=== PATIENT | female | born 1985 | race Caucasian/White ===

== ENCOUNTER → 2017-07-01 | Outpatient (CLI) | payer OTHER ==
[2017-07-01 11:20] LABS: BASO # 0.1 x10^3/uL (0.0-0.2); BASO % 1 % (0-3); EOS % 7 % (0-3); HEMOGLOBIN 14.6 g/dL (12.0-15.5); LYMPH # 1.8 x10^3/uL (1.0-4.8); LYMPH % 32 % (24-48); MEAN CORPUSCULAR HEMOGLOBIN 29 pg (25-35); MEAN CORPUSCULAR HGB CONC 32 g/dL (31-37); MEAN CORPUSCULAR VOLUME 89 fL (79-100); MONO % 11 % (0-9); NEUT % 49 % (31-73); PLATELET COUNT 209 x10^3/uL (140-400); RED BLOOD COUNT 5.04 x10^6/uL (3.50-5.40); WHITE BLOOD COUNT 5.8 x10^3/uL (4.0-11.0)
[2017-07-01 11:41] LABS: ALBUMIN 4.2 g/dL (3.4-5.0); ALBUMIN/GLOBULIN RATIO 1.2 (1.0-1.7); CREATININE 0.8 mg/dL (0.6-1.0); GFR 83.1; POTASSIUM 3.8 mmol/L (3.5-5.1); TOTAL BILIRUBIN 0.5 mg/dL (0.2-1.0); TOTAL PROTEIN 7.6 g/dL (6.4-8.2)
[2017-07-01 11:43] LABS: CHOLESTEROL/HDL RATIO 2.5
== END | disposition home or self-care (01) ==
LOC: LAB 10:58
PROVIDERS: ATTEND Nurse Practitioner
DX: Z13.220 Encounter for screening for lipoid disorders (principal); Z83.49 Family history of other endocrine, nutritional and metabolic diseases; Z79.899 Other long term (current) drug therapy
CPT/HCPCS: 36415; 80053; 80061; 83036; 84443; 85025

== ENCOUNTER 2018-05-27 22:14 | Emergency (ER) | payer OTHER ==
[~2018-05-27] VITALS: Ht 167.6 cm; Wt 72.6 kg
[2018-05-27 22:39] LABS: BILIRUBIN,URINE NEGATIVE (NEG); CLARITY,URINE CLEAR; COLOR,URINE YELLOW; NITRITE,URINE NEGATIVE (NEG); PROTEIN,URINE NEGATIVE (NEG-TRACE); UROBILINOGEN,URINE 0.2 mg/dL (0.2 mg/dL)
[2018-05-27 22:45] LABS: BACTERIA,URINE FEW /HPF (0-FEW)
[2018-05-27 22:55] VITALS: BP 164/94
[2018-05-27] MEDS ORDERED: NITR100C62 PO (22:59)
--- NOTE | 2018-05-27 23:00 | PHYS DOC ---
Adult General Chief Complaint Chief Complaint: PAIN ON URINATION [facility] HPI Patient is a 33 year old female who presents with dysuria. Patient states that she has been having pain with urination as well as frequency and urgency that started today. She has also had 2 episodes of chills but denies fever, nausea or vomiting. Nothing has helped with her symptoms. Review of Systems Review of Systems Constitutional: Denies fever or chills [] Respiratory: Denies cough or shortness of breath [] Cardiovascular: No additional information not addressed in HPI [] GI: Denies abdominal pain, nausea, vomiting, bloody stools or diarrhea [] : See history of present illness Musculoskeletal: Denies back pain or joint pain [] Integument: Denies rash or skin lesions [] Neurologic: Denies headache, focal weakness or sensory changes [] Endocrine: Denies polyuria or polydipsia [] All other systems were reviewed and found to be within normal limits, except as documented in this note. Allergies Allergies Allergies Coded Allergies Type Severity Reaction Last Updated Verified No Known Drug Allergies 05/27/18 No Physical Exam Physical Exam Constitutional: Well developed, well nourished, no acute distress, non-toxic appearance. [] Cardiovascular:Heart rate regular rhythm, no murmur [] Lungs & Thorax: Bilateral breath sounds clear to auscultation [] Abdomen: Bowel sounds normal, soft, no tenderness, no masses, no pulsatile masses. [] Skin: Warm, dry, no erythema, no rash. [] Back: No tenderness, no CVA tenderness. [] Neurologic: Alert and oriented X 3, normal motor function, normal sensory function, no focal deficits noted. [] Psychologic: Affect normal, judgement normal, mood normal. [] Current Patient Data Vital Signs Vital Signs Date Time Temp Pulse Resp B/P (MAP) Pulse Ox O2 Delivery O2 Flow Rate FiO2 05/27/18 22:55 98.4 73 14 164/94 (117) 99 Room Air 98.4 Staff Physician Addendum: I was working in the ER during the course of this patient's visit. I was available for consultation as needed, but I was not directly involved in the care of this patient. Lab Values Laboratory Tests Test 05/27/18 22:15 05/27/18 22:32 Urine Collection Type Void Urine Color Yellow Urine Clarity Clear Urine pH 7.0 Urine Specific [place] <=1.005 Urine Protein Negative mg/dL (NEG-TRACE) Urine Glucose (UA) Negative mg/dL (NEG) Urine Ketones (Stick) Negative mg/dL (NEG) Urine Blood Moderate (NEG) Urine Nitrite Negative (NEG) Urine Bilirubin Negative (NEG) Urine Urobilinogen Dipstick 0.2 mg/dL (0.2 mg/dL) Urine Leukocyte Esterase Large (NEG) Urine RBC 1-2 /HPF (0-2) Urine WBC 11-20 /HPF (0-4) Urine Squamous Epithelial Cells None /LPF Urine Bacteria Few /HPF (0-FEW) POC Urine HCG, Qualitative Hcg negative (Negative) Microbiology 05/27/18 Urine Culture - Final, Complete 05/27/18 Urine Culture Result 1 (DONOVAN) - Final, Complete 05/27/18 Antimicrobic Susceptibility - Final, Complete EKG EKG [] Radiology/Procedures Radiology/Procedures [] Course & Med Decision Making Course & Med Decision Making Pertinent Labs and Imaging studies reviewed. (See chart for details) [] Dragon Disclaimer Dragon Disclaimer This electronic medical record was generated, in whole or in part, using a voice recognition dictation system. Departure Departure Impression: Primary Impression: Urinary tract infection Disposition: HOME, SELF-CARE Condition: STABLE Referrals: BENTLEY SALINAS (PCP) Patient Instructions: Urinary Tract Infection Additional Instructions: Take the medication as prescribed. Follow-up with your primary care provider in one week for urine recheck. If worsening return to the emergency department. Scripts Nitrofurantoin Monohyd/M-Cryst (MACROBID 100 MG CAPSULE) 100 Mg Capsule 1 CAP PO BID for UTI, #14 CAP Prov: MOSES MANN APRN 05/27/18 MOSES MANN APRN May 27, 2018 23:00 MONSTER MENDEZ MD Jun 02, 2018 06:17
== END 2018-05-27 23:07 | disposition home or self-care (01) ==
LOC: ER 22:14
DX: N39.0 Urinary tract infection, site not specified (principal)
CPT/HCPCS: 81001; 81025; 87086; 87186; 99284

== ENCOUNTER → 2018-06-29 | Outpatient (CLI) | payer OTHER ==
[~2018-06-29] MED LIST: NITR100C62 PO
[2018-06-29 09:10] LABS: BASO % 0 % (0-3); EOS # 0.5 x10^3/uL (0.0-0.7); EOS % 8 % (0-3); HEMATOCRIT 44.7 % (36.0-47.0); HEMOGLOBIN 15.1 g/dL (12.0-15.5); LYMPH % 30 % (24-48); MEAN CORPUSCULAR HEMOGLOBIN 30 pg (25-35); MEAN CORPUSCULAR HGB CONC 34 g/dL (31-37); MEAN CORPUSCULAR VOLUME 88 fL (79-100); MONO # 0.8 x10^3/uL (0.0-1.1); MONO % 12 % (0-9); NEUT # 3.3 x10^3uL (1.8-7.7); NEUT % 50 % (31-73); PLATELET COUNT 246 x10^3/uL (140-400); RED BLOOD COUNT 5.05 x10^6/uL (3.50-5.40); RED CELL DISTRIBUTION WIDTH 13.7 % (11.5-14.5); WHITE BLOOD COUNT 6.6 x10^3/uL (4.0-11.0)
[2018-06-29 09:23] LABS: CALCIUM 9.1 mg/dL (8.5-10.1); CREATININE 0.8 mg/dL (0.6-1.0); GFR 82.6; POTASSIUM 4.1 mmol/L (3.5-5.1); TOTAL BILIRUBIN 0.3 mg/dL (0.2-1.0); TOTAL PROTEIN 8.2 g/dL (6.4-8.2)
[2018-06-29 09:35] LABS: CHOLESTEROL/HDL RATIO 3.3
[2018-06-29 19:24] LABS: HEMOGLOBIN A1C 5.6 % (4.8-5.6)
== END | disposition home or self-care (01) ==
LOC: LAB 08:41
PROVIDERS: ATTEND Nurse Practitioner
DX: Z00.00 Encounter for general adult medical examination without abnormal findings (principal); Z13.220 Encounter for screening for lipoid disorders; Z13.1 Encounter for screening for diabetes mellitus
CPT/HCPCS: 36415; 80053; 80061; 83036; 84443; 85025

== ENCOUNTER → 2019-01-29 | Outpatient (CLI) | payer OTHER ==
--- NOTE | 2019-01-29 17:12 | KCIC ---
Examination: PREG MORE THAN OR EQ TO 14 WKS History: Uterine size-date discrepancy Comparison/Correlation: None FINDINGS: Single living intrauterine gestation with heart rate of 149 bpm is present with cephalic lie. Maternal cervical length is 4.95 cm. Anterior wall location of the placenta is seen. anatomy identified includes: Bladder, spine, bilateral lateral ventricles, stomach, heart, aorta, three-vessel cord insertion, bilateral kidneys, diaphragm, cerebellum, cisterna magna, bilateral upper extremities, and bilateral lower extremities. Sacrum is not well visualized. gender: Male measurements include: Biparietal diameter: 5.16 cm corresponding to 21 weeks 5 days. Femur length of 3.64 cm corresponding to 21 weeks 4 days. Head circumference of 19.58 cm corresponding to 21 weeks 5 days. Abdominal circumference of 16.61 cm corresponding to 21 weeks 4 days. Age by 4 parameters corresponds to 21 weeks 5 days. EDC by average age is 06/06/2019. Gestational age by last menstrual period is 21 weeks 1 day. Cephalic index of 77.6. H/A ratio is 1.18. FL/BPD is 70.5. FL/ AC is 21.9. Estimated weight is 430 g. IMPRESSION: Single living intrauterine gestation with age by ultrasound parameters corresponding to 25 weeks 5 days. This is 4 days greater than age by last menstrual period. Electronically signed by: Nicola Sandoval MD (01/29/2019 5:09 PM) [facility]
== END | disposition home or self-care (01) ==
LOC: KCIC US 14:05
PROVIDERS: ATTEND Obstetrics & Gynecology
DX: O26.842 Uterine size-date discrepancy, second trimester (principal); Z3A.25 25 weeks gestation of pregnancy
CPT/HCPCS: 76805

== ENCOUNTER → 2019-03-21 | Outpatient (CLI) | payer OTHER ==
[2019-03-21 10:21] LABS: BASO % 1 % (0-3); EOS # 0.2 x10^3/uL (0.0-0.7); EOS % 2 % (0-3); HEMATOCRIT 38.3 % (36.0-47.0); LYMPH # 0.8 x10^3/uL (1.0-4.8); LYMPH % 10 % (24-48); MEAN CORPUSCULAR HEMOGLOBIN 30 pg (25-35); MEAN CORPUSCULAR HGB CONC 34 g/dL (31-37); MEAN CORPUSCULAR VOLUME 88 fL (79-100); MONO # 0.6 x10^3/uL (0.0-1.1); MONO % 8 % (0-9); NEUT # 6.2 x10^3/uL (1.8-7.7); NEUT % 79 % (31-73); PLATELET COUNT 176 x10^3/uL (140-400); RED BLOOD COUNT 4.38 x10^6/uL (3.50-5.40); RED CELL DISTRIBUTION WIDTH 14.4 % (11.5-14.5); WHITE BLOOD COUNT 7.8 x10^3/uL (4.0-11.0)
== END | disposition home or self-care (01) ==
LOC: LAB 09:06
PROVIDERS: ATTEND Obstetrics & Gynecology
DX: O09.90 Supervision of high risk pregnancy, unspecified, unspecified trimester (principal)
CPT/HCPCS: 36415; 82950; 85025

== ENCOUNTER 2019-05-16 11:55 | Observation (INO) | payer OTHER | END 2019-05-16 12:55 | disposition home or self-care (01) | LOC: 3 SO LND 11:55 | PROVIDERS: ADMIT Obstetrics & Gynecology; ATTEND Obstetrics & Gynecology | DX: O24.419 Gestational diabetes mellitus in pregnancy, unspecified control (principal); Z3A.00 Weeks of gestation of pregnancy not specified | CPT/HCPCS: G0378; G0379; 59025 ==

== ENCOUNTER 2019-05-24 12:53 | Observation (INO) | payer OTHER ==
[2019-05-24 13:46] LABS: BILIRUBIN,URINE NEGATIVE (NEG); CLARITY,URINE CLEAR; COLOR,URINE YELLOW; NITRITE,URINE NEGATIVE (NEG); PROTEIN,URINE NEGATIVE (NEG-TRACE); UROBILINOGEN,URINE 0.2 mg/dL (0.2 mg/dL)
[2019-05-24 13:51] LABS: BACTERIA,URINE FEW /HPF (0-FEW); RBC,URINE 0 /HPF (0-2); SQUAMOUS EPITHELIAL CELL,UR MOD /LPF
== END 2019-05-24 13:55 | disposition home or self-care (01) ==
LOC: 3 SO LND 12:53
PROVIDERS: ADMIT Obstetrics & Gynecology; ATTEND Obstetrics & Gynecology
DX: O24.410 Gestational diabetes mellitus in pregnancy, diet controlled (principal); Z3A.37 37 weeks gestation of pregnancy
CPT/HCPCS: 81001; 87086; G0378; G0379

== ENCOUNTER 2019-05-27 20:04 | Inpatient (IN) | payer OTHER ==
[~2019-05-27] VITALS: Ht 167.6 cm; Wt 90.3 kg
[2019-05-27 13:24] VITALS: BP 142/77
[2019-05-27 14:55] VITALS: BP 139/68
[2019-05-27] MEDS ORDERED: TERBUTALINE 1 MG/ML VIAL. SQ PRN (20:15)
[2019-05-27] MEDS ORDERED: LIDOCAINE 1% PF 30 ML VIAL. INJ PRN (20:15)
[2019-05-27] MEDS ORDERED: fentaNYL PF VIAL 100 MCG/2 ML VIAL IV PRN (20:15)
[2019-05-27] MEDS ORDERED: ACETAMINOPHEN 500 MG TABLET PO PRN (20:15)
[2019-05-27] MEDS ORDERED: IBUPROFEN 400 MG TABLET. PO PRN (20:15)
[2019-05-27] MEDS ORDERED: diphenhydrAMINE HCL 25 MG CAPSULE PO PRN (20:15)
[2019-05-27] MEDS ORDERED: 0.9 % SODIUM CHLORIDE 10 ML DISP.SYRIN. IV PRN (20:15)
[2019-05-27] MEDS ORDERED: ONDANSETRON PF 4 MG/2 ML VIAL. IV PRN (20:15)
[2019-05-27] MEDS ORDERED: OXYTOCIN 30 UNIT/500 ML PREMIX 500 ML IV PRN (20:15)
[2019-05-27] MEDS ORDERED: CITRIC ACID/SODIUM CITRATE 30 ML SOLUTION. PO PRN (20:15)
[2019-05-27] MEDS ORDERED: NALBUPHINE 10 MG/ML AMPUL. IV PRN (20:15)
[2019-05-27] MEDS ORDERED: DINOPROSTONE 10 MG SUPP.VAG VG ONE (20:30)
[2019-05-27] MEDS: IV RINGERS,LACTATED 1000ML 1,000 ML IV SCH (21:24)
[2019-05-27 21:35] LABS: BASO # 0.1 x10^3/uL (0.0-0.2); BASO % 1 % (0-3); EOS # 0.2 x10^3/uL (0.0-0.7); EOS % 2 % (0-3); HEMATOCRIT 36.1 % (36.0-47.0); HEMOGLOBIN 12.2 g/dL (12.0-15.5); LYMPH # 1.7 x10^3/uL (1.0-4.8); LYMPH % 17 % (24-48); MEAN CORPUSCULAR HEMOGLOBIN 30 pg (25-35); MEAN CORPUSCULAR HGB CONC 34 g/dL (31-37); MEAN CORPUSCULAR VOLUME 87 fL (79-100); MONO # 1.1 x10^3/uL (0.0-1.1); MONO % 11 % (0-9); NEUT % 70 % (31-73); PLATELET COUNT 217 x10^3/uL (140-400); RED BLOOD COUNT 4.14 x10^6/uL (3.50-5.40); RED CELL DISTRIBUTION WIDTH 13.6 % (11.5-14.5); WHITE BLOOD COUNT 10.1 x10^3/uL (4.0-11.0)
[2019-05-27 21:38] LABS: BILIRUBIN,URINE NEGATIVE (NEG); CLARITY,URINE CLEAR; COLOR,URINE YELLOW; NITRITE,URINE NEGATIVE (NEG); PH,URINE 6.5; PROTEIN,URINE NEGATIVE (NEG-TRACE); UROBILINOGEN,URINE 0.2 mg/dL (0.2 mg/dL)
[2019-05-27 21:44] LABS: SQUAMOUS EPITHELIAL CELL,UR OCC /LPF
[2019-05-27 21:45] LABS: BACTERIA,URINE 0 /HPF (0-FEW); RBC,URINE 0 /HPF (0-2); WBC,URINE 0 /HPF (0-4)
[2019-05-27 22:09] VITALS: BP 147/82
[2019-05-27 22:40] VITALS: BP 144/86
[2019-05-28] MEDS ORDERED: OXYTOCIN 30 UNIT/500 ML PREMIX 500 ML IV PRN ×2 (06:00→10:30)
[2019-05-28] MEDS: IV RINGERS,LACTATED 1000ML 1,000 ML IV SCH ×3 (07:27→20:30)
[2019-05-28] MEDS ORDERED: ROPIVacaine 0.2% PF 10 ML VIAL. ONE ×2 (09:00→09:22)
[2019-05-28] MEDS ORDERED: OXYTOCIN PREMIX 30 UNIT/500 ML NS BAG. IV ONE (09:00)
[2019-05-28] MEDS ORDERED: L&D EPIDURAL 50 ML SYRINGE. ONE (09:00)
[2019-05-28] MEDS ORDERED: L&D EPIDURAL SYRINGE 50 ML ONE (09:23)
--- NOTE | 2019-05-28 10:28 | PDOC1 ---
OB - History Hx of Present Care: Good Care Ultrasounds: Normal mid trimester US Obstetrical Complications: Gestational Diabetes Medical Complications: Other (CHTN) Past Family/Social History * Past Medical, Surgical, Family and Obstetric Histories reviewed from chart. Rubella: Immune RPR/VDRL: Negative GBS Status: Negative HBsAG: Negative OB - Chief Complaint & HPI Date of Admission: Date of Admission: May 27, 2019 at 20:04 Chief Complaint/History : 3 Para: 2 EGA: 38 Reason for admission: induction of labor (GDM A1 and CHTN) Admission Nurse Assessment Rev: Yes OB - Admission Exam Physical Exam Vitals: VS - Last 72 Hours, by Label Date Time Temp Pulse Resp B/P (MAP) Pulse Ox O2 Delivery O2 Flow Rate FiO2 05/27/19 22:40 98.8 81 18 144/86 (105) Room Air 98.8 HEENT: Normal Heart: Regular Rate Lungs: Clear Abdomen: Gravid, Non tender, Soft Extremities: Edema Reflexes: Normal Cervical Dilatation: 2cm Effacement: 75% Station: -3 Membranes: Intact Heart Rate: Normal Accelerations: Accelerations Present Decelerations: No decelerations Contractions on Admission: None Text A: 38 wks IUP CHTN GDM A1 P: Admit cervidil, then pitocin in am. COY TROY Jr, MD May 28, 2019 10:27
[2019-05-28] MEDS ORDERED: oxyCODONE/APAP 5/325 1 TAB TABLET PO PRN (10:30)
[2019-05-28] MEDS ORDERED: MMR per PROTOCOL. MC PRN (10:30)
[2019-05-28] MEDS ORDERED: 0.9 % SODIUM CHLORIDE 10 ML DISP.SYRIN. IV PRN (10:30)
[2019-05-28] MEDS ORDERED: ACETAMINOPHEN 325 MG TABLET. PO PRN (10:30)
[2019-05-28] MEDS ORDERED: DOCUSATE SODIUM 100 MG CAPSULE. PO PRN (10:30)
[2019-05-28] MEDS ORDERED: BENZOCAINE 20% TOPICAL AEROSOL SPRAY 57GM CAN. TP PRN (10:30)
[2019-05-28] MEDS ORDERED: ZOLPIDEM 5 MG TABLET. PO PRN (10:30)
[2019-05-28] MEDS ORDERED: SIMETHICONE 80 MG TAB.CHEW PO PRN (10:30)
[2019-05-28] MEDS ORDERED: diphenhydrAMINE HCL 25 MG CAPSULE PO PRN (10:30)
[2019-05-28] MEDS ORDERED: PHENYLEPH/MINERAL OIL/PETROLAT RECTAL OINTMENT TUBE. RC PRN (10:30)
[2019-05-28] MEDS ORDERED: HYDROCORTISONE 1% TOPICAL OINTMENT 30GM TUBE. TP PRN (10:30)
[2019-05-28] MEDS ORDERED: MAGNESIUM HYDROXIDE 2,400 MG/30 ML ORAL.SUSP. PO PRN (10:30)
[2019-05-28] MEDS ORDERED: MAG HYDROX/ALUMINUM HYD/SIMETH 30 ML ORAL.SUSP PO PRN (10:30)
--- NOTE | 2019-05-28 11:11 | PDOC ---
VAGINAL DELIVERY DATE DATE: 05/28/19 TIME: 11:10 : 3 Para: 3 EGA: 38 VAGINAL DELIVERY: VTX VACCUM ASSISTED: No PLACENTA: Spontaneous 8/9 SEX: Male WEIGHT Weight [3635 gm ] Nuchal Cord: No Amniotic Fluid: Clear PAIN: Epidural EPISIOTOMY: No EXTENSION: Yes (Right periurethral laceration) REPAIRED WITH 3-0 chromic EBL 300 ml COMPLICATIONS none CONDITION pt. stable Signs of Intrauterine Infectio: None Shoulder Dystocia: No COY TROY Jr, MD May 28, 2019 11:11
[2019-05-28 15:13] VITALS: BP 142/77
[2019-05-28 15:56] VITALS: BP 149/79
[2019-05-28] MEDS: IBUPROFEN 400 MG TABLET. PO PRN (18:06)
[2019-05-28 19:45] VITALS: BP 154/80
[2019-05-28] MEDS: FERROUS SULFATE 325 MG TABLET. PO SCH (21:16)
[2019-05-29] MEDS: IBUPROFEN 400 MG TABLET. PO PRN ×2 (02:32→16:50)
[2019-05-29 02:45] VITALS: BP 143/92
[2019-05-29 04:00] VITALS: BP 130/77
[2019-05-29 04:40] LABS: BASO # 0.1 x10^3/uL (0.0-0.2); BASO % 1 % (0-3); EOS # 0.3 x10^3/uL (0.0-0.7); EOS % 2 % (0-3); LYMPH # 2.1 x10^3/uL (1.0-4.8); LYMPH % 18 % (24-48); MEAN CORPUSCULAR HEMOGLOBIN 30 pg (25-35); MEAN CORPUSCULAR HGB CONC 33 g/dL (31-37); MEAN CORPUSCULAR VOLUME 89 fL (79-100); MONO # 1.1 x10^3/uL (0.0-1.1); MONO % 10 % (0-9); NEUT % 70 % (31-73); PLATELET COUNT 165 x10^3/uL (140-400); RED BLOOD COUNT 3.73 x10^6/uL (3.50-5.40); RED CELL DISTRIBUTION WIDTH 13.9 % (11.5-14.5); WHITE BLOOD COUNT 11.5 x10^3/uL (4.0-11.0)
[2019-05-29] MEDS: FERROUS SULFATE 325 MG TABLET. PO SCH ×2 (08:00→17:00)
[2019-05-29 11:05] VITALS: BP 148/88
--- NOTE | 2019-05-29 12:26 | PDOC ---
OB Progress Note Date of Service 05/29/19 Time of Evaluation 1225 Notes Pt. feeling well. Pain controlled. Breast feeding. Lab Laboratory Tests Test 05/27/19 21:10 05/27/19 21:30 05/29/19 03:50 White Blood Count 10.1 x10^3/uL (4.0-11.0) 11.5 x10^3/uL (4.0-11.0) Red Blood Count 4.14 x10^6/uL (3.50-5.40) 3.73 x10^6/uL (3.50-5.40) Hemoglobin 12.2 g/dL (12.0-15.5) 11.0 g/dL (12.0-15.5) Hematocrit 36.1 % (36.0-47.0) 33.0 % (36.0-47.0) Mean Corpuscular Volume 87 fL (79-100) 89 fL (79-100) Mean Corpuscular Hemoglobin 30 pg (25-35) 30 pg (25-35) Mean Corpuscular Hemoglobin Concent 34 g/dL (31-37) 33 g/dL (31-37) Red Cell Distribution Width 13.6 % (11.5-14.5) 13.9 % (11.5-14.5) Platelet Count 217 x10^3/uL (140-400) 165 x10^3/uL (140-400) Neutrophils (%) (Auto) 70 % (31-73) 70 % (31-73) Lymphocytes (%) (Auto) 17 % (24-48) 18 % (24-48) Monocytes (%) (Auto) 11 % (0-9) 10 % (0-9) Eosinophils (%) (Auto) 2 % (0-3) 2 % (0-3) Basophils (%) (Auto) 1 % (0-3) 1 % (0-3) Neutrophils # (Auto) 7.0 x10^3/uL (1.8-7.7) 8.0 x10^3/uL (1.8-7.7) Lymphocytes # (Auto) 1.7 x10^3/uL (1.0-4.8) 2.1 x10^3/uL (1.0-4.8) Monocytes # (Auto) 1.1 x10^3/uL (0.0-1.1) 1.1 x10^3/uL (0.0-1.1) Eosinophils # (Auto) 0.2 x10^3/uL (0.0-0.7) 0.3 x10^3/uL (0.0-0.7) Basophils # (Auto) 0.1 x10^3/uL (0.0-0.2) 0.1 x10^3/uL (0.0-0.2) Treponema pallidum Antibody Nonreactive (Nonreactive) Urine Collection Type Unknown Urine Color Yellow Urine Clarity Clear Urine pH 6.5 Urine Specific [place] <=1.005 Urine Protein Negative mg/dL (NEG-TRACE) Urine Glucose (UA) Negative mg/dL (NEG) Urine Ketones (Stick) Negative mg/dL (NEG) Urine Blood Negative (NEG) Urine Nitrite Negative (NEG) Urine Bilirubin Negative (NEG) Urine Urobilinogen Dipstick 0.2 mg/dL (0.2 mg/dL) Urine Leukocyte Esterase Negative (NEG) Urine RBC 0 /HPF (0-2) Urine WBC 0 /HPF (0-4) Urine Squamous Epithelial Cells Occ /LPF Urine Bacteria 0 /HPF (0-FEW) Laboratory Tests Test 05/29/19 03:50 White Blood Count 11.5 x10^3/uL (4.0-11.0) Red Blood Count 3.73 x10^6/uL (3.50-5.40) Hemoglobin 11.0 g/dL (12.0-15.5) Hematocrit 33.0 % (36.0-47.0) Mean Corpuscular Volume 89 fL (79-100) Mean Corpuscular Hemoglobin 30 pg (25-35) Mean Corpuscular Hemoglobin Concent 33 g/dL (31-37) Red Cell Distribution Width 13.9 % (11.5-14.5) Platelet Count 165 x10^3/uL (140-400) Neutrophils (%) (Auto) 70 % (31-73) Lymphocytes (%) (Auto) 18 % (24-48) Monocytes (%) (Auto) 10 % (0-9) Eosinophils (%) (Auto) 2 % (0-3) Basophils (%) (Auto) 1 % (0-3) Neutrophils # (Auto) 8.0 x10^3/uL (1.8-7.7) Lymphocytes # (Auto) 2.1 x10^3/uL (1.0-4.8) Monocytes # (Auto) 1.1 x10^3/uL (0.0-1.1) Eosinophils # (Auto) 0.3 x10^3/uL (0.0-0.7) Basophils # (Auto) 0.1 x10^3/uL (0.0-0.2) Medications Current Medications Sodium Chloride (Normal Saline Flush) 3 ml QSHIFT PRN IV AFTER MEDS AND BLOOD DRAWS; Start 05/27/19 at 20:15; Stop 05/28/19 at 10:29; Status DC Ringer's Solution 1,000 ml @ 125 mls/hr Q8H IV Last administered on 05/28/19at 07:27; Start 05/27/19 at 20:30; Stop 05/28/19 at 23:17; Status DC Nalbuphine HCl (Nubain) 10 mg PRN Q1HR PRN IV Severe labor pain; Start 05/27/19 at 20:15 Fentanyl Citrate (Fentanyl 2ml Vial) 100 mcg PRN Q30MIN PRN IV Severe pain; Start 05/27/19 at 20:15; Stop 05/28/19 at 23:17; Status DC Acetaminophen (Tylenol) 1,000 mg PRN Q6HRS PRN PO MILD PAIN / TEMP; Start 05/27/19 at 20:15; Stop 05/28/19 at 10:31; Status DC Ondansetron HCl (Zofran) 4 mg PRN Q4HRS PRN IV NAUSEA/VOMITING; Start 05/27/19 at 20:15 Citric Acid/ Sodium Citrate (Bicitra) 30 ml 1X PRN PRN PO DYSPEPSIA; Start 05/27/19 at 20:15; Stop 05/28/19 at 20:14; Status DC Terbutaline Sulfate (Brethine) 0.25 mg 1X PRN PRN SQ SEE COMMENTS; Start 05/27/19 at 20:15; Stop 05/28/19 at 20:14; Status DC Lidocaine HCl (Xylocaine 1% Pf 30ml Vial) 30 ml 1X PRN PRN INJ SEE COMMENTS; Start 05/27/19 at 20:15; Stop 05/29/19 at 20:14 Oxytocin/Sodium Chloride 500 ml @ 0 mls/hr CONT PRN IV SEE I/O RECORD; Start 05/28/19 at 06:00 Oxytocin/Sodium Chloride 500 ml @ 0 mls/hr CONT PRN PRN IV Post delivery bleeding; Start 05/27/19 at 20:15 Ibuprofen (Motrin) 800 mg PRN Q6HRS PRN PO MODERATE PAIN; Start 05/27/19 at 20:15; Stop 05/28/19 at 10:29; Status DC Dinoprostone (Cervidil) 10 mg 1X ONCE VG Last administered on 05/27/19at 20:30; Start 05/27/19 at 20:30; Stop 05/27/19 at 20:31; Status DC Diphenhydramine HCl (Benadryl) 25 mg PRN QHS PRN PO INSOMNIA; Start 05/27/19 at 20:15 Ropivacaine (Naropin 0.2%) 10 ml STK-MED ONCE .ROUTE ; Start 05/28/19 at 09:22; Stop 05/28/19 at 09:23; Status DC Fentanyl Citrate 50 ml @ As Directed STK-MED ONCE .ROUTE ; Start 05/28/19 at 09:23; Stop 05/28/19 at 09:23; Status DC Sodium Chloride (Normal Saline Flush) 10 ml QSHIFT PRN IV AFTER MEDS AND BLOOD DRAWS; Start 05/28/19 at 10:30 Oxytocin/Sodium Chloride 500 ml @ 62.5 mls/hr CONT PRN IV SEE I/O RECORD; Start 05/28/19 at 10:30; Stop 05/28/19 at 18:29; Status DC Acetaminophen (Tylenol) 650 mg PRN Q6HRS PRN PO MILD PAIN / TEMP Last administered on 05/29/19at 09:00; Start 05/28/19 at 10:30 Ibuprofen (Motrin) 800 mg PRN Q8HRS PRN PO INFLAMMATION/PAIN PREVENTION Last administered on 05/29/19at 02:32; Start 05/28/19 at 10:30 Docusate Sodium (Colace) 100 mg PRN BID PRN PO CONSTIPATION; Start 05/28/19 at 10:30 Magnesium Hydroxide (Milk Of Magnesia) 2,400 mg PRN DAILY PRN PO CONSTIPATION; Start 05/28/19 at 10:30 Al Hydroxide/Mg Hydroxide (Mylanta Plus Xs) 30 ml PRN Q4HRS PRN PO HEARTBURN / GAS; Start 05/28/19 at 10:30 Simethicone (Gas-X) 80 mg PRN AFTMEALHC PRN PO GAS / BLOATING; Start 05/28/19 at 10:30 Diphenhydramine HCl (Benadryl) 25 mg PRN Q6HRS PRN PO ITCHING; Start 05/28/19 at 10:30 Benzocaine (Americaine) 1 spray PRN QID PRN TP TOPICAL PAIN Last administered on 05/28/19at 18:07; Start 05/28/19 at 10:30 Phenyleph/Shark Oil/Min Oil/Petrol (Preparation H) 1 richard PRN QID PRN RC RECTAL PAIN; Start 05/28/19 at 10:30 Hydrocortisone (Cortaid) 1 richard PRN QID PRN TP PERINEAL PAIN; Start 05/28/19 at 10:30 Ferrous Sulfate (Feosol) 325 mg BIDWMEALS PO Last administered on 05/28/19at 21:16; Start 05/28/19 at 17:00 Zolpidem Tartrate (Ambien) 5 mg PRN QHS PRN PO INSOMNIA, MAY REPEAT X1; Start 05/28/19 at 10:30 Info (Do NOT chart on this placeholder) 1 ea 1X PRN PRN MC SEE COMMENTS; Start 05/28/19 at 10:30 Info (Do NOT chart on this placeholder) 1 ea 1X PRN PRN MC SEE COMMENTS; Start 05/28/19 at 10:30 Oxycodone/ Acetaminophen (Percocet 5/325) 2 tab PRN Q4HRS PRN PO MODERATE PAIN, SEVERE PAIN; Start 05/28/19 at 10:30 Nifedipine (Procardia Xl) 30 mg DAILY PO Last administered on 05/28/19at 21:16; Start 05/28/19 at 21:00 Fentanyl Citrate (Kjzkrcht-Wdbhf-UM 3 Mcg-0.1%) 50 ml STK-MED ONCE .ROUTE ; Start 05/28/19 at 09:00; Stop 05/29/19 at 08:55; Status DC Ropivacaine (Naropin 0.2%) 10 ml STK-MED ONCE .ROUTE ; Start 05/28/19 at 09:00; Stop 05/29/19 at 08:55; Status DC Oxytocin/Sodium Chloride (Oxytocin Premix Infusion) 30 unit STK-MED ONCE IV ; Start 05/28/19 at 09:00; Stop 05/29/19 at 08:55; Status DC Active Scripts Active Macrobid 100 Mg Capsule (Nitrofurantoin Monohyd/M-Cryst) 100 Mg Capsule 1 Cap PO BID Exam Abd: soft, non tender, fundus firm Assessment PPD#1 s/p Plan of Care: Continue current Tx, Mgmt COY TROY Jr, MD May 29, 2019 12:26
[2019-05-29 16:41] VITALS: BP 138/87
[2019-05-29 20:30] VITALS: BP 164/88
[2019-05-30 01:23] VITALS: BP 162/82
[2019-05-30] MEDS: IBUPROFEN 400 MG TABLET. PO PRN ×2 (01:29→09:56)
[2019-05-30 04:00] VITALS: BP 143/86
[2019-05-30 07:40] VITALS: BP 151/93
--- NOTE | 2019-05-30 08:26 | PDOC3 ---
OB DISCHARGE SUMMARY DATE OF ADMISSION: 05/27/19 DATE OF DISCHARGE: 05/30/19 REASON FOR ADMISSION: Induction of labor INTRAPARTUM PROCEDURES: Spontanous Vag Deliv DISCHARGE DIAGNOSIS: Term Delivered (CHTN and GDM A1) DISCHARGE INFORMATION: Activity (ad yomaira), Diet (regular), Instructions (pelvic rest x 6 wks) HOSPITAL COURSE Term gestation with CHTN and GDM A1 delivered vaginally without complications. COY TROY Jr, MD May 30, 2019 08:26
[2019-05-30] MEDS ORDERED: IBUP-1027 PO (08:27)
--- NOTE | 2019-05-30 08:28 | DISCH ---
DISCHARGE INSTRUCTIONS Condition on Discharge Condition on Discharge: Stable Activity After Discharge Activity Instructions for Disc: Activity as tolerated Lifting Instructions after Dis: No heavy lifting Driving Instructions after Dis: Do not drive today Diet after Discharge Diet after Discharge: Regular Contacting the [facility] after DC Call your doctor for: Concerns you may have Follow-Up Follow up with: Dr. Frye in 6 wks COY FRYE Jr, MD May 30, 2019 08:27
[2019-05-30 12:51] VITALS: BP 144/94
--- NOTE | 2019-05-30 12:54 | NUR ---
Discharge Note: JENNIFER TUCKER M3 SO LND Discharge instructions and discharge home medications reviewed with Patient and a copy given. All questions have been answered and understanding verbalized. Follow up appointments reviewed. Patient discharged to home with self-care via WC to private vehicle.
== END 2019-05-30 13:00 | disposition home or self-care (01) | DRG 806 ==
LOC: 3 SO LND 20:04
PROVIDERS: ADMIT Obstetrics & Gynecology; ATTEND Obstetrics & Gynecology
PROC: 10E0XZZ Delivery of Products of Conception, External Approach (ICD-10-PCS; principal; 2019-05-27)
PROC: 3E0R3BZ Introduction of Anesthetic Agent into Spinal Canal, Percutaneous Approach (ICD-10-PCS; 2019-05-27)
PROC: 00HU33Z Insertion of Infusion Device into Spinal Canal, Percutaneous Approach (ICD-10-PCS; 2019-05-27)
PROC: 0UQMXZZ Repair Vulva, External Approach (ICD-10-PCS; 2019-05-27)
DX: O24.420 Gestational diabetes mellitus in childbirth, diet controlled (principal); O10.92 Unspecified pre-existing hypertension complicating childbirth; Z37.0 Single live birth; Z3A.38 38 weeks gestation of pregnancy; O71.82 Other specified trauma to perineum and vulva
CPT/HCPCS: 36415; 81001; 85025; 86592; 86850; 86900; 86901; J2590; J2795; J7120; G0378

== ENCOUNTER 2019-05-31 18:50 | Emergency (ER) | payer OTHER ==
[~2019-05-31] VITALS: Ht 167.6 cm; Wt 90.7 kg
[~2019-05-31 18:50] MED LIST changes: +IBUP-1027 PO
--- NOTE | 2019-05-31 19:10 | PHYS DOC ---
Past Medical History Past Medical History: Anxiety, UTI Past Surgical History: No Surgical History Alcohol Use: Occasionally Drug Use: None Adult General Chief Complaint Chief Complaint: HYPERTENSION HPI HPI 34-year-old female presents to the emergency department with complaints of palpitations, chest pressure, anxiety, elevated blood pressure. Patient has a history of gestational diabetes, hypertension associated with . She delivered on Tuesday to be 8 week vaginal delivery without complications. Patient was discharged on nifedipine 30 mg daily. She states last night she had headache, palpitations chest discomfort. She called her OB with recommendations for follow-up tomorrow however she states she was concerned about symptoms and presented to the ER for further evaluation. She denies any nausea, vomiting, intermittent abdominal discomfort secondary to delivery. Patient denies any fever. Nothing makes symptoms worse nothing makes symptoms better. Review of Systems Review of Systems Constitutional: Denies fever or chills [] Eyes: Denies change in visual acuity, redness, or eye pain [] HENT: Denies nasal congestion or sore throat [] Respiratory: Denies cough or shortness of breath [] Cardiovascular: No additional information not addressed in HPI [] GI: intermittent abdominal pain cramping, no nausea, vomiting, bloody stools or diarrhea [] : Denies dysuria or hematuria [] Musculoskeletal: Denies back pain or joint pain [] Integument: Denies rash or skin lesions [] Neurologic: + headache, no focal weakness or sensory changes [] All other systems were reviewed and found to be within normal limits, except as documented in this note. Current Medications Current Medications Current Medications Medications (Trade) Dose Ordered Sig/Aydee Start Time Stop Time Status Last Admin Dose Admin Acetaminophen (Tylenol) 1,000 mg 1X ONCE 05/31/19 19:15 05/31/19 19:16 DC 05/31/19 19:30 1,000 MG Labetalol HCl (Normodyne Iv Push) 10 mg 1X ONCE 05/31/19 19:15 05/31/19 19:16 DC Allergies Allergies Allergies Coded Allergies Type Severity Reaction Last Updated Verified No Known Drug Allergies 05/27/18 No Physical Exam Physical Exam Constitutional: Well developed, well nourished, no acute distress, non-toxic appearance. [] HENT: Normocephalic, atraumatic, bilateral external ears normal, oropharynx moist, no oral exudates, nose normal. [] Eyes: PERRLA, EOMI, conjunctiva normal, no discharge. [] Cardiovascular:Heart rate regular rhythm, no murmur [] Lungs & Thorax: Bilateral breath sounds clear to auscultation [] Abdomen: Bowel sounds normal, soft, no tenderness, no masses, no pulsatile masses. [] Skin: Warm, dry, no erythema, no rash. [] Back: No tenderness, no CVA tenderness. [] Extremities: No tenderness, no edema. [] Neurologic: Alert and oriented X 3, no focal deficits noted. [] Psychologic: Affect normal, judgement normal, mood normal. [] Current Patient Data Vital Signs Vital Signs Date Time Temp Pulse Resp B/P (MAP) Pulse Ox O2 Delivery O2 Flow Rate FiO2 05/31/19 18:59 98.1 91 18 170/102 (124) 98 Room Air 98.1 Lab Values Laboratory Tests Test 05/31/19 19:20 05/31/19 20:18 White Blood Count 12.1 x10^3/uL (4.0-11.0) H Red Blood Count 4.09 x10^6/uL (3.50-5.40) Hemoglobin 12.0 g/dL (12.0-15.5) Hematocrit 36.0 % (36.0-47.0) Mean Corpuscular Volume 88 fL (79-100) Mean Corpuscular Hemoglobin 29 pg (25-35) Mean Corpuscular Hemoglobin Concent 33 g/dL (31-37) Red Cell Distribution Width 13.8 % (11.5-14.5) Platelet Count 241 x10^3/uL (140-400) Neutrophils (%) (Auto) 76 % (31-73) H Lymphocytes (%) (Auto) 15 % (24-48) L Monocytes (%) (Auto) 6 % (0-9) Eosinophils (%) (Auto) 3 % (0-3) Basophils (%) (Auto) 1 % (0-3) Neutrophils # (Auto) 9.2 x10^3/uL (1.8-7.7) H Lymphocytes # (Auto) 1.8 x10^3/uL (1.0-4.8) Monocytes # (Auto) 0.7 x10^3/uL (0.0-1.1) Eosinophils # (Auto) 0.3 x10^3/uL (0.0-0.7) Basophils # (Auto) 0.1 x10^3/uL (0.0-0.2) Sodium Level 143 mmol/L (136-145) Potassium Level 3.7 mmol/L (3.5-5.1) Chloride Level 106 mmol/L (98-107) Carbon Dioxide Level 25 mmol/L (21-32) Anion Gap 12 (6-14) Blood Urea Nitrogen 10 mg/dL (7-20) Creatinine 0.7 mg/dL (0.6-1.0) Estimated GFR (Cockcroft-Gault) 95.8 BUN/Creatinine Ratio 14 (6-20) Glucose Level 112 mg/dL (70-99) H Calcium Level 8.2 mg/dL (8.5-10.1) L Total Bilirubin 0.2 mg/dL (0.2-1.0) Aspartate Amino Transferase (AST) 29 U/L (15-37) Alanine Aminotransferase (ALT) 31 U/L (14-59) Alkaline Phosphatase 111 U/L (46-116) Troponin I Quantitative < 0.017 ng/mL (0.000-0.055) Total Protein 6.6 g/dL (6.4-8.2) Albumin 2.7 g/dL (3.4-5.0) L Albumin/Globulin Ratio 0.7 (1.0-1.7) L Urine Collection Type Unknown Urine Color Yellow Urine Clarity Clear Urine pH 5.5 Urine Specific [place] 1.020 Urine Protein Negative mg/dL (NEG-TRACE) Urine Glucose (UA) Negative mg/dL (NEG) Urine Ketones (Stick) Negative mg/dL (NEG) Urine Blood Large (NEG) Urine Nitrite Negative (NEG) Urine Bilirubin Negative (NEG) Urine Urobilinogen Dipstick 0.2 mg/dL (0.2 mg/dL) Urine Leukocyte Esterase Moderate (NEG) Urine RBC 20-40 /HPF (0-2) Urine WBC 11-20 /HPF (0-4) Urine Squamous Epithelial Cells Mod /LPF Urine Bacteria Few /HPF (0-FEW) Urine Mucus Mod /LPF Laboratory Tests 05/31/19 19:20 Laboratory Tests 05/31/19 19:20 EKG EKG [] Radiology/Procedures Radiology/Procedures [] Course & Med Decision Making Course & Med Decision Making Pertinent Labs and Imaging studies reviewed. (See chart for details) []34-year-old female presents to the emergency department with complaints of palpitations, chest pressure, anxiety, elevated blood pressure. Patient has a history of gestational diabetes, hypertension associated with . She delivered on Tuesday to be 8 week vaginal delivery without complications. Patient was discharged on nifedipine 30 mg daily. She states last night she had headache, palpitations chest discomfort. She called her OB with recommendations for follow-up tomorrow however she states she was concerned about symptoms and presented to the ER for further evaluation. She denies any nausea, vomiting, intermittent abdominal discomfort secondary to delivery. Patient denies any fever. Nothing makes symptoms worse nothing makes symptoms better. Labs/medications provided Labetalol 10mg IVP x 1 - on hold 2/ BP 150/91 Tylenol 1000mg po x 1 Discussed dc plans home with patient Continue planned appointment for tomorrow wt DR. WOODROW Aguilar Disclaimer Lauren Disclaimer This electronic medical record was generated, in whole or in part, using a voice recognition dictation system. Departure Departure Impression: Primary Impression: Hypertension Additional Impression: Anxiety Disposition: HOME, SELF-CARE Condition: STABLE Referrals: BENTLEY SALINAS (PCP) Patient Instructions: Anxiety and Panic Attacks, [id number], Gestational Diabetes Mellitus, Hypertension During , [id number] Additional Instructions: Recommend follow up with PCP 3 - 5 days Return to the ER with worsening symptoms, intractable pain, fever, altered mental status Tylenol/Motrin as needed for pain Problem Qualifiers Primary Impression: Hypertension Hypertension type: unspecified Qualified Codes: I10 - Essential (primary) hypertension ASHLEY RUELAS MD May 31, 2019 19:10
[2019-05-31] MEDS ORDERED: LABETALOL 20 MG/4 ML DISP.SYRIN. IVP ONE (19:15)
[2019-05-31] MEDS ORDERED: ACETAMINOPHEN 500 MG TABLET PO ONE (19:15)
[2019-05-31 19:25] LABS: BASO # 0.1 x10^3/uL (0.0-0.2); BASO % 1 % (0-3); EOS # 0.3 x10^3/uL (0.0-0.7); EOS % 3 % (0-3); LYMPH # 1.8 x10^3/uL (1.0-4.8); LYMPH % 15 % (24-48); MEAN CORPUSCULAR HEMOGLOBIN 29 pg (25-35); MEAN CORPUSCULAR HGB CONC 33 g/dL (31-37); MEAN CORPUSCULAR VOLUME 88 fL (79-100); MONO # 0.7 x10^3/uL (0.0-1.1); MONO % 6 % (0-9); NEUT # 9.2 x10^3/uL (1.8-7.7); NEUT % 76 % (31-73); PLATELET COUNT 241 x10^3/uL (140-400); RED BLOOD COUNT 4.09 x10^6/uL (3.50-5.40); RED CELL DISTRIBUTION WIDTH 13.8 % (11.5-14.5); WHITE BLOOD COUNT 12.1 x10^3/uL (4.0-11.0)
[2019-05-31 19:38] LABS: CALCIUM 8.2 mg/dL (8.5-10.1); CREATININE 0.7 mg/dL (0.6-1.0); GFR 95.8; POTASSIUM 3.7 mmol/L (3.5-5.1)
[2019-05-31 19:43] LABS: ALBUMIN 2.7 g/dL (3.4-5.0); ALBUMIN/GLOBULIN RATIO 0.7 (1.0-1.7); TOTAL BILIRUBIN 0.2 mg/dL (0.2-1.0); TOTAL PROTEIN 6.6 g/dL (6.4-8.2)
[2019-05-31 20:26] LABS: BILIRUBIN,URINE NEGATIVE (NEG); CLARITY,URINE CLEAR; COLOR,URINE YELLOW; NITRITE,URINE NEGATIVE (NEG); PH,URINE 5.5; PROTEIN,URINE NEGATIVE (NEG-TRACE); UROBILINOGEN,URINE 0.2 mg/dL (0.2 mg/dL)
[2019-05-31 20:30] LABS: BACTERIA,URINE FEW /HPF (0-FEW); RBC,URINE 20-40 /HPF (0-2)
[2019-05-31 20:31] LABS: SQUAMOUS EPITHELIAL CELL,UR MOD /LPF
[2019-05-31 20:50] VITALS: BP 135/86
== END 2019-05-31 20:55 | disposition home or self-care (01) ==
LOC: ER 18:50
DX: I10 Essential (primary) hypertension (principal); F41.9 Anxiety disorder, unspecified; N39.0 Urinary tract infection, site not specified; Z72.89 Other problems related to lifestyle
CPT/HCPCS: 36415; 80053; 81001; 84484; 85025; 87086; 99284